=== PATIENT | female | born 1945 | race Two or more races ===

== ENCOUNTER 2025-04-09 19:16 | Emergency (ER) | payer MEDICARE, OTHER ==
[~2025-04-09] VITALS: Ht 167.6 cm; Wt 106.6 kg
[2025-04-09 19:39] VITALS: TEMP 98.6
[2025-04-09] MEDS ORDERED: KETOROLAC TROMETHAMINE INJ 30 MG/ML VIAL ONE (20:03)
[2025-04-09] MEDS ORDERED: CYCLOBENZAPRINE 10 MG TABLET ONE (20:03)
[2025-04-09] MEDS: KETOROLAC TROMETHAMINE INJ 30 MG/ML VIAL IV ONE (20:15)
[2025-04-09] MEDS: CYCLOBENZAPRINE 10 MG TABLET PO ONE (20:16)
[2025-04-09 20:17] LABS: PLATELET COUNT (AUTO) 206 K/uL (150-450); RED BLOOD CELL COUNT(AUTO) 5.13 MIL/uL (4.0-5.2); RED CELL DISTRIBUTION WIDTH 14.1 % (11.5-15.0); WHITE BLOOD COUNT (AUTO) 6.3 K/uL (4.3-11.0)
[2025-04-09 20:28] LABS: INR 0.96 (0.91-1.10)
[2025-04-09 20:39] LABS: CALCIUM, SERUM 9.4 mg/dL (8.5-10.1); CREATININE 0.9 mg/dL (0.6-1.3); SODIUM SERUM 136 mmol/L (136-145); UREA NITROGEN, BLOOD 15 mg/dL (7-18)
[2025-04-09] MEDS ORDERED: KETO10TA2 PO (20:53)
[2025-04-09] MEDS ORDERED: CYCL5TAB PO (20:53)
[2025-04-09 21:26] VITALS: BP 139/88; O2SAT 97
== END 2025-04-09 21:37 | disposition home or self-care (01) ==
LOC: ER 19:19
DX: M54.31 Sciatica, right side (principal); I11.9 Hypertensive heart disease without heart failure; I48.91 Unspecified atrial fibrillation; E11.9 Type 2 diabetes mellitus without complications; E03.9 Hypothyroidism, unspecified
CPT/HCPCS: 99285; 96374; 93971; 96375; 85025; 80048; 36415; 85730; J1885; J2919